=== PATIENT | female | born 1965 ===

== ENCOUNTER 2017-03-01 11:30 | Outpatient (CLI) | payer OTHER ==
--- NOTE | 2017-03-01 12:29 | Mammography Report ---
Bilateral digital diagnostic mammogram with CAD. History: Cystic mastopathy. Findings: A there is intermediate density of the fibroglandular tissue. On the initial standard projection, there is a vague asymmetry seen in the lateral left breast on the CC projection only. No architectural distortion is seen. A spot compression of this area demonstrates effacement of the density with no suspicious findings. No findings are seen on the 90degree view. The right breast is unremarkable. Impression: No suspicious findings. BI-RADS code: 2. Recommendation: Annual screening.
== END 2017-03-01 11:31 | disposition home or self-care (01) ==
LOC: SPVWC 11:30
PROVIDERS: ATTEND Surgery
DX: N60.12 Diffuse cystic mastopathy of left breast (principal); N60.11 Diffuse cystic mastopathy of right breast; Z80.3 Family history of malignant neoplasm of breast
CPT/HCPCS: 77066; G0204